=== PATIENT | male | born 1995 | race Native Hawaiian/Other Pacific Islander ===

== ENCOUNTER 2018-05-26 14:07 | Emergency (ER) | payer OTHER ==
[~2018-05-26] VITALS: Ht 170.2 cm; Wt 59.0 kg
[2018-05-26 15:32] VITALS: BP 110/59; TEMP 98
== END 2018-05-26 15:32 | disposition home or self-care (01) ==
LOC: ED 14:07 → EDBD 14:07 → ED 14:07
DX: S09.90XA Unspecified injury of head, initial encounter (principal); S20.412A Abrasion of left back wall of thorax, initial encounter; S20.411A Abrasion of right back wall of thorax, initial encounter; S30.810A Abrasion of lower back and pelvis, initial encounter; W17.89XA Other fall from one level to another, initial encounter
CPT/HCPCS: 99283

== ENCOUNTER 2018-06-21 12:43 | Emergency (ER) | payer OTHER ==
[~2018-06-21] VITALS: Ht 170.2 cm; Wt 63.5 kg
[2018-06-21 12:50] VITALS: TEMP 97.9
[2018-06-21 13:25] LABS: PLATELET COUNT 222 K/uL (142-355)
[2018-06-21 13:31] LABS: POTASSIUM 3.9 mmol/L (3.6-5.2)
[2018-06-21 16:45] VITALS: BP 11/070
== END 2018-06-21 16:59 | disposition home or self-care (01) ==
LOC: ED 12:43
PROVIDERS: Emergency Medicine
DX: F41.8 Other specified anxiety disorders (principal); R00.1 Bradycardia, unspecified
CPT/HCPCS: 36415; 80053; 80307; 80320; 80329; 81000; 85027; 93005; 99285

== ENCOUNTER 2018-11-19 15:18 | Emergency (ER) | payer OTHER ==
[~2018-11-19] VITALS: Ht 170.2 cm; Wt 63.5 kg
[2018-11-19 15:36] VITALS: TEMP 97.6
[2018-11-19 16:13] LABS: PLATELET COUNT 238 K/uL (142-355)
[2018-11-19 16:21] LABS: POTASSIUM 3.9 mmol/L (3.6-5.2)
[2018-11-19 16:55] VITALS: BP 124/66
== END 2018-11-19 16:55 | disposition home or self-care (01) ==
LOC: ED 15:18
PROVIDERS: Emergency Medicine
DX: K59.00 Constipation, unspecified (principal); R10.9 Unspecified abdominal pain
CPT/HCPCS: 36415; 80053; 80307; 81000; 82150; 83690; 85027; 96361; 96374; 99284; J1885

== ENCOUNTER 2021-12-17 22:35 | Inpatient (IN) | payer OTHER ==
[~2021-12-17] VITALS: Ht 170.2 cm; Wt 64.5 kg
[2021-12-17 22:35] VITALS: BP 135/81; TEMP 97.2
[2021-12-17 23:00] VITALS: BP 124/79
[2021-12-17 23:11] LABS: PLATELET COUNT 260 K/uL (142-355)
[2021-12-17 23:17] LABS: POTASSIUM 3.8 mmol/L (3.6-5.2); SODIUM 138 mmol/L (136-145)
[2021-12-17 23:20] VITALS: BP 122/77
[2021-12-17 23:50] VITALS: BP 119/74
[2021-12-18] VITALS (26 sets, daily range): BP systolic 11–130; BP diastolic 46–71; TEMP 96.4–97.7; Ht 170.2 cm; Wt 64.5 kg
[2021-12-18 05:30] LABS: PLATELET COUNT 214 K/uL (142-355)
[2021-12-18 05:46] LABS: POTASSIUM 4.1 mmol/L (3.6-5.2)
== END 2021-12-18 14:50 | disposition home or self-care (01) | DRG 918 ==
LOC: ED 22:35 → ICU 12-18 01:25
PROVIDERS: Emergency Medicine; ADMIT Internal Medicine; ATTEND Internal Medicine
DX: T43.621A Poisoning by amphetamines, accidental (unintentional), initial encounter (principal); I95.89 Other hypotension; R00.1 Bradycardia, unspecified; Y92.89 Other specified places as the place of occurrence of the external cause; F12.10 Cannabis abuse, uncomplicated; F15.10 Other stimulant abuse, uncomplicated
CPT/HCPCS: 36415; 80053; 80143; 80179; 80307; 80320; 81000; 82805; 84484; 85027; 87088; 87635; 93005; 96360; 96361; 96374; 96376; 99285; J0461; J2310; U0003

== ENCOUNTER 2022-02-01 19:19 | Emergency (ER) | payer OTHER ==
[~2022-02-01] VITALS: Ht 175.3 cm; Wt 59.0 kg
[2022-02-01] MEDS ORDERED: CIPR500T PO (20:55)
[2022-02-01 22:08] VITALS: BP 126/85; TEMP 97.9
== END 2022-02-01 22:08 | disposition home or self-care (01) ==
LOC: ED 19:19
DX: A54.89 Other gonococcal infections (principal)
CPT/HCPCS: 81000; 87490; 87590; 96372; 99283; J0696

== ENCOUNTER 2022-02-26 18:20 | Emergency (ER) | payer OTHER ==
[~2022-02-26] VITALS: Ht 175.3 cm; Wt 59.0 kg
[~2022-02-26 18:20] MED LIST: CIPR500T PO
[2022-02-26 18:35] VITALS: BP 107/64; TEMP 97.1
== END 2022-02-26 19:33 | disposition home or self-care (01) ==
LOC: ED 18:20
DX: A54.89 Other gonococcal infections (principal)
CPT/HCPCS: 96372; 99283; J0696